=== PATIENT | male | born 1945 | race Caucasian/White ===

== ENCOUNTER → 2016-11-19 | Outpatient (CLI) | payer MEDICARE, OTHER | LOC: MW.CHORTHO 08:00 | PROVIDERS: ATTEND Orthopaedic Surgery | DX: M19.011 Primary osteoarthritis, right shoulder (principal) | CPT/HCPCS: 20610; G0463; J1040 ==

== ENCOUNTER 2019-04-28 09:42 | Emergency (ER) | payer MEDICARE, OTHER ==
--- NOTE | 2019-04-28 09:59 | EDM.PDOC ---
ED HPI GENERAL MEDICAL PROBLEM - General Chief Complaint: Lower Extremity Injury/Pain Stated Complaint: KICKED IN RIGHT FOOT BY HORSE Time Seen by Provider: 04/28/19 09:59 Source of Information: Reports: Patient History Limitations: Reports: No Limitations - History of Present Illness INITIAL COMMENTS - FREE TEXT/NARRATIVE: HISTORY AND PHYSICAL: History of present illness: Patient is a 73-year-old male presents the ED with complaint of right foot injury. He states that 2 days ago he was riding a horse when another horse kicked him on the bottom of the right foot. He has been able to walk on it but reports a lot of discomfort with this. He denies proximal ankle or knee pain and denies numbness or tingling. Review of systems: As per history of present illness and below otherwise all systems reviewed and negative. Past medical history: As per history of present illness and as reviewed below otherwise noncontributory. Surgical history: As per history of present illness and as reviewed below otherwise noncontributory. Social history: No reported history of drug or alcohol abuse. Family history: As per history of present illness and as reviewed below otherwise noncontributory. Physical exam: General: Patient sitting comfortably in no acute distress and nontoxic appearing HEENT: Atraumatic, normocephalic, pupils reactive, negative for conjunctival pallor or scleral icterus, mucous membranes moist, throat clear, neck supple, nontender, trachea midline. No meningeal signs. Lungs: Clear to auscultation, breath sounds equal bilaterally, chest nontender. Heart: S1S2, regular, negative for clicks, rubs, or overt murmur. Abdomen: Soft, nondistended, nontender. Negative for masses or hepatosplenomegaly. Negative for costovertebral tenderness. No rigidity, rebound , guarding. Pelvis: Stable nontender. Genitourinary: Deferred. Rectal: Deferred. Extremities: Ecchymosis of the second and third digits of the right foot and along the distal aspects of the first, second and third metatarsals on the dorsal aspect of foot. Pain to palpation in this area. No proximal pain to palpation of the ankle. CMS intact distally negative for cords or calf pain. Neurovascular unremarkable. Neuro: Awake, alert, oriented. Cranial nerves II through XII unremarkable. Cerebellum unremarkable. Motor and sensory unremarkable throughout. Exam nonfocal. Notes: Diagnostics: X-ray right foot Therapeutics: Declined pain meds CAM boot - nurse applied Crutches Prescriptions: Impression: Dislocation 4th proximal phalanx Plan: 1. Ice, elevate, and motrin or tylenol as needed 2. Follow up with podiatry, please call the number provided to schedule an appointment 3. Return to ED as needed as discussed Definitive disposition and diagnosis as appropriate pending reevaluation and review of above. - Related Data Allergies Allergy/AdvReac Type Severity Reaction Status Date / Time No Known Allergies Allergy Verified 04/28/19 09:52 Home Meds: Home Meds Tamsulosin HCl 0.4 mg PO DAILY 04/28/19 [History] Past Medical History Other Oncologic History: rectal - Infectious Disease History Infectious Disease History: Reports: Chicken Pox, Measles, Mumps Social & Family History - Family History Family Medical History: Noncontributory - Tobacco Use Smoking Status *Q: Never Smoker - Recreational Drug Use Recreational Drug Use: No Review of Systems - Review of Systems Review Of Systems: ROS reveals no pertinent complaints other than HPI. ED EXAM, GENERAL - Physical Exam Exam: See Below (See dictation) ED TRAUMA EXTREMITY PROCEDURES - Joint Reduction Site: Other (right fourth phalanx ) Sedation: Other (none) Pre-Procedure NV Status: Normal Post-Procedure NV Status: Normal Technique: Traction/Counter Traction Number of Attempts: 2 Post-Reduction Imaging: Completely Reduced, No Fracture Seen Joint Reduction Complications: No Course - Vital Signs Last Recorded V/S: Last Vital Signs Temp 97.3 F 04/28/19 09:53 Pulse 79 04/28/19 09:53 Resp 18 04/28/19 09:53 BP 126/55 L 04/28/19 09:53 Pulse Ox 97 04/28/19 09:53 - Orders/Labs/Meds Orders: Active Orders 24 hr Category Date Time Status Foot 2V Rt [CR] Stat Exams 04/28/19 11:12 Taken Departure - Departure Time of Disposition: 11:44 Disposition: Home, Self-Care 01 Condition: Good Clinical Impression: Dislocation of fourth toe, right, closed, Right foot injury - Discharge Information Instructions: Toe Dislocation, [id number] Referrals: Andrey Licea MD [Primary Care Provider] - Forms: ED Department Discharge Additional Instructions: The following information is given to patients seen in the emergency department who are being discharged to home. This information is to outline your options for follow-up care. We provide all patients seen in our emergency department with a follow-up referral. The need for follow-up, as well as the timing and circumstances, are variable depending upon the specifics of your emergency department visit. If you don't have a primary care physician on staff, we will provide you with a referral. We always advise you to contact your personal physician following an emergency department visit to inform them of the circumstance of the visit and for follow-up with them and/or the need for any referrals to a consulting specialist. The emergency department will also refer you to a specialist when appropriate. This referral assures that you have the opportunity for follow-up care with a specialist. All of these measure are taken in an effort to provide you with optimal care, which includes your follow-up. Under all circumstances we always encourage you to contact your private physician who remains a resource for coordinating your care. When calling for follow-up care, please make the office aware that this follow-up is from your recent emergency room visit. If for any reason you are refused follow-up, please contact the [facility] Emergency Department at and asked to speak to the emergency department charge nurse. [facility] [address] [place], [place] [id number] [facility] [address] [place] [id number] [facility] [address] [place] [address] 1. Ice, elevate, and motrin or tylenol as needed 2. Follow up with podiatry, please call the number provided to schedule an appointment 3. Return to ED as needed as discussed - My Orders Last 24 Hours: My Active Orders 04/28/19 11:12 Foot 2V Rt [CR] Stat - Assessment/Plan Last 24 Hours: My Active Orders 04/28/19 11:12 Foot 2V Rt [CR] Stat
--- NOTE | 2019-04-28 11:04 | CR ---
Indication: Kicked by horse. Technique: Right foot 3 views Comparison: None Findings: There appears to be dislocation of the 4th proximal phalanx relative to the metatarsal seen on AP and oblique views but not well seen on the lateral view due to foot positioning. No fracture identified. Screw fixation of the medial malleolus. Round lucent lesion in the navicular bone medially has a benign appearance and may represent a prior screw tract. Soft tissue swelling about the foot. Impression: Dislocation of the 4th proximal phalanx relative to the metatarsal. Dictated by Patricia Mello MD @ Apr 28 2019 11:00AM Signed by Dr. Patricia Mello @ Apr 28 2019 11:04AM
--- NOTE | 2019-04-28 12:45 | CR ---
Right foot: Two views of the right foot were obtained. Comparison: No previous study is available. Orthopedic screw is noted within the medial malleolus. No fracture or dislocation is seen. Mild soft tissue swelling appears to be present distally. Impression: Mild soft tissue swelling. No acute bony abnormality is identified on two-view right foot exam. Diagnostic code #2 MTDD
== END 2019-04-28 11:43 | disposition home or self-care (01) ==
LOC: MW.ED 09:42
DX: S93.124A Dislocation of metatarsophalangeal joint of right lesser toe(s), initial encounter (principal); V80.7 Animal-rider or occupant of animal-drawn vehicle injured in collision with other nonmotor vehicles; Y93.52 Activity, horseback riding
CPT/HCPCS: 73620-26-RT; 73620-RT; 73630-26-RT; 73630-RT; 99283-25

== ENCOUNTER 2020-04-09 12:07 | Observation (INO) | payer MEDICARE, OTHER ==
[2020-04-09] MEDS ORDERED: Diphtheria,Pertussis(Acell),Tetanus Vaccine 0.5 ML Syringe IM ONE (12:40)
[2020-04-09] MEDS ORDERED: IMIPENEM IV SCH (12:45)
[2020-04-09] MEDS ORDERED: CILASTATIN IV SCH (12:45)
[2020-04-09] MEDS ORDERED: Clindamycin Phosphate in D5W 900 MG in Premix Bag 1 BAG IV ONE ×2 (13:00)
[2020-04-09 13:18] LABS: BLOOD UREA NITROGEN,BUN 18 mg/dL (7.0-18.0); CARBON DIOXIDE,CO2 28.1 mmol/L (21.0-32.0); CHLORIDE,CL 104 mmol/L (98-107); GLUCOSE RANDOM 108 mg/dL (74-106); POTASSIUM,K 3.9 mmol/L (3.5-5.1); SODIUM,NA 140 mmol/L (136-148)
[2020-04-09] MEDS ORDERED: Meropenem Premix 1 GM in Premix Bag 1 BAG IV ONE (13:30)
--- NOTE | 2020-04-09 13:30 | CR ---
Right forearm: 2 views of the right forearm were obtained. Soft tissue swelling is noted. No radiopaque foreign object is seen. Calcification is noted off the lateral epicondyle within the elbow believed to be old. Minimal calcifications within the distal triceps tendon at the attachment to the olecranon process is seen. Mild degenerative change is noted at the radiocarpal joint. Vascular calcification is seen around the wrist. Impression: 1. Soft tissue swelling. 2. Other nonacute bony findings as noted above. 3. No radiopaque foreign object is seen. Diagnostic code #2 Study was dictated in MDT
--- NOTE | 2020-04-09 13:30 | EDM.PDOC ---
ED HPI GENERAL MEDICAL PROBLEM - General Chief Complaint: Bite:Animal, Insect Stated Complaint: INFECTED DOG BITE Time Seen by Provider: 04/09/20 12:19 - History of Present Illness INITIAL COMMENTS - FREE TEXT/NARRATIVE: HISTORY AND PHYSICAL: History of present illness: This 74-year-old male presents to the emergency department after being bit by his own dog in the right forearm. This was on Friday. He thinks. Patient s tates that he was taking some amoxicillin that was left over medication he had in his cabinet. There is been significant swelling but now the erythema swelling and purulent drainage are not getting better. He states that is slightly better than it was before but it continues to be quite painful. Worse with movement of the wrist. No pain with rotation at the elbow or extension flexion. His dog has all of his shots. Review of systems: A 10-point review of systems, other than pertinent positives and negatives as stated per HPI, is otherwise negative. Past medical history: As per history of present illness and as reviewed below otherwise noncontributory. Surgical history: As per history of present illness and as reviewed below otherwise noncontributory. Social history: No reported history of drug or alcohol abuse. Family history: As per history of present illness and as reviewed below otherwise noncontributory. Physical exam: VITAL SIGNS: Reviewed. GENERAL: Mild distress. Swollen right upper extremity. There are 2 puncture wounds on the ventral side of the forearm with 1 distinct area of necrosis and other distinct area of purulent drainage. On the dorsal side there is 1 puncture wound that is also infected. Both areas have a significant amount of cellulitis. Distal neurovascular function is intact. HEAD: No signs of head trauma. EYES: Pupils are equal. Extraocular motions intact. EARS: Hearing grossly intact. MOUTH: Oropharynx is normal. NECK: No adenopathy, no JVD. CHEST: Chest with clear breath sounds bilaterally. No wheezes, rales, or rhonchi. CARDIAC: Regular rate and rhythm. Normal S1 and S2, without murmurs, gallops, or rubs. VASCULAR: Peripheral pulses normal and equal in all extremities. ABDOMEN: Soft, without detectable tenderness. No sign of distention. No rebound or guarding, and no masses palpated. MUSCULOSKELETAL: Tenderness without pain and range of motion. Distal neurovascular function intact. Puncture wounds as described above. 1 area of distinct necrosis. I do not feel any crepitation. NEUROLOGIC EXAM: Alert and oriented x 3. No focal sensory or motor deficits. Speech normal. Follows commands. PSYCHIATRIC: Mood normal. SKIN: No rash or lesions. Initial Differential Diagnosis & Plan: The patient has an erythematous right forearm with lymphangitis up to the elbow. The rash is not pruritic. Differential diagnosis: -Necrotizing fascitis was considered. There does not appear to be distal proportionate pain. There is not a dusky appearance but there is an area of central necrosis on 1 of the lesions. There is some significant induration but no fluctuance. There are no bullae. Some mild ecchymosis around 1 other site. There is some pain beyond the puncture wounds but this area has cellulitic change. There are no skip lesions up the arm. The lymphangitis stops at the elbow. There is no tenderness in the lymph nodes of the right axilla. -DVT was considered, but there are no risk factors like personal history, family history, recent trauma or surgery, immobilization, or cancer. The patient has so has a clear history of why he would have this injury so DVT is essentially ruled out -abscess was considered, and the wound appears to be draining. There may be a small abscess under 1 of the areas. We will obtain additional imaging. There is no history of asplenia or liver cirrhosis. The wound is greater than 12 hours old. I am concerned about Pasteurella infection. There is no other immunocompromise state. No previous history of lymph node resection to increase the risk of lymphedema. I will start empiric therapy with IV antibiotics. I will discuss the case with the on-call surgeon about coming to the operating room and doing a washout and debriding the tissue there. Initial page to the surgeon was at 12:50 PM Definitive disposition and diagnosis as appropriate pending reevaluation and review of above. right forearm Pain Score (Numeric/FACES): 2 - Related Data Allergies Allergy/AdvReac Type Severity Reaction Status Date / Time No Known Allergies Allergy Verified 04/09/20 12:20 Home Meds: Home Meds . [No Known Home Meds] 04/09/20 [History] Past Medical History Other Oncologic History: rectal - Infectious Disease History Infectious Disease History: Reports: Measles, Mumps - Past Surgical History HEENT Surgical History: Reports: Oral Surgery GI Surgical History: Reports: Colonoscopy Social & Family History - Family History Family Medical History: Noncontributory - Tobacco Use Smoking Status *Q: Former Smoker Used Tobacco, but Quit: Yes Month/Year Tobacco Last Used: 1989 - Caffeine Use Caffeine Use: Reports: Coffee - Recreational Drug Use Recreational Drug Use: No ED ROS GENERAL - Review of Systems Review Of Systems: See Below (noted) ED EXAM, ANIMAL BITE - Physical Exam Exam: See Below (noted) Course - Vital Signs Last Recorded V/S: Last Vital Signs Temp 97.5 F 04/09/20 13:58 Pulse 61 04/09/20 13:58 Resp 18 04/09/20 12:21 BP 152/76 H 04/09/20 13:58 Pulse Ox 98 04/09/20 13:58 - Orders/Labs/Meds Orders: Active Orders 24 hr Category Date Time Status Patient Status [ADT] Routine ADT 04/09/20 14:35 Active Antiembolic Devices [RC] PER UNIT ROUTINE Care 04/09/20 14:36 Active Vaccines to be Administered [RC] PER UNIT ROUTINE Care 04/09/20 12:40 Active Verify Patient Consent Obtain [RC] ASDIRECTED Care 04/09/20 14:35 Active CORONAVIRUS COVID-19 KEVIN [MOLEC] Stat Lab 04/09/20 14:25 Received CULTURE BLOOD [BC] Stat Lab 04/09/20 12:50 Received CULTURE BLOOD [BC] Stat Lab 04/09/20 13:14 Received PROCALCITONIN [REF] Stat Lab 04/09/20 12:50 Received Lactated Ringers [Ringers, Lactated] 1,000 ml Med 04/09/20 14:45 Active IV ASDIRECTED Sodium Chloride 0.9% [Normal Saline] Med 04/09/20 14:35 Active 10 ml IV ASDIRECTED PRN Sodium Chloride 0.9% [Saline Flush] Med 04/09/20 14:35 Active 10 ml FLUSH ASDIRECTED PRN Sodium Chloride 0.9% [Saline Flush] Med 04/09/20 14:35 Active 2.5 ml FLUSH ASDIRECTED PRN Blood Culture x2 Reflex Set [OM.PC] Stat Oth 04/09/20 12:27 Ordered Peripheral IV Insertion Adult [OM.PC] Routine Oth 04/09/20 14:35 Ordered Sequential Compression Device [OM.PC] Routine Oth 04/09/20 14:35 Ordered Resuscitation Status Routine Resus Stat 04/09/20 14:35 Ordered Medication Orders Lactated Ringer's (Ringers, Lactated) 1,000 mls @ 125 mls/hr IV ASDIRECTED ANUM Sodium Chloride (Saline Flush) 10 ml FLUSH ASDIRECTED PRN PRN Reason: Keep Vein Open Sodium Chloride (Saline Flush) 2.5 ml FLUSH ASDIRECTED PRN PRN Reason: Keep Vein Open Sodium Chloride (Normal Saline) 10 ml IV ASDIRECTED PRN PRN Reason: IV Use Labs: Laboratory Tests 04/09/20 04/09/20 04/09/20 Range/Units 12:50 12:50 12:50 WBC 7.40 (4.0-11.0) K/uL RBC 4.61 (4.50-5.90) M/uL Hgb 14.6 (13.0-17.0) g/dL Hct 44.0 (38.0-50.0) % MCV 95.4 (80.0-98.0) fL MCH 31.7 (27.0-32.0) pg MCHC 33.2 (31.0-37.0) g/dL RDW Std Deviation 43.7 (28.0-62.0) fl RDW Coeff of Yohannes 13 (11.0-15.0) % Plt Count 256 (150-400) K/uL MPV 10.40 (7.40-12.00) fL Neut % (Auto) 72.9 (48.0-80.0) % Lymph % (Auto) 9.5 L (16.0-40.0) % [place] % (Auto) 16.1 H (0.0-15.0) % Eos % (Auto) 1.2 (0.0-7.0) % Baso % (Auto) 0.3 (0.0-1.5) % Neut # (Auto) 5.4 (1.4-5.7) K/uL Lymph # (Auto) 0.7 (0.6-2.4) K/uL [place] # (Auto) 1.2 H (0.0-0.8) K/uL Eos # (Auto) 0.1 (0.0-0.7) K/uL Baso # (Auto) 0.0 (0.0-0.1) K/uL Nucleated RBC % 0.0 /100WBC Nucleated RBCs # 0 K/uL INR Lactate 0.8 (0.20-2.00) mmol/L Sodium 140 (136-148) mmol/L Potassium 3.9 (3.5-5.1) mmol/L Chloride 104 (98-107) mmol/L Carbon Dioxide 28.1 (21.0-32.0) mmol/L BUN 18 (7.0-18.0) mg/dL Creatinine 0.9 (0.8-1.3) mg/dL Est Cr Clr Drug Dosing 68.34 mL/min Estimated GFR (MDRD) > 60.0 ml/min Glucose 108 H (74-106) mg/dL Calcium 8.8 (8.5-10.1) mg/dL C-Reactive Protein (0.00-0.90) mg/dL 04/09/20 04/09/20 Range/Units 12:50 12:50 WBC (4.0-11.0) K/uL RBC (4.50-5.90) M/uL Hgb (13.0-17.0) g/dL Hct (38.0-50.0) % MCV (80.0-98.0) fL MCH (27.0-32.0) pg MCHC (31.0-37.0) g/dL RDW Std Deviation (28.0-62.0) fl RDW Coeff of Yohannes (11.0-15.0) % Plt Count (150-400) K/uL MPV (7.40-12.00) fL Neut % (Auto) (48.0-80.0) % Lymph % (Auto) (16.0-40.0) % [place] % (Auto) (0.0-15.0) % Eos % (Auto) (0.0-7.0) % Baso % (Auto) (0.0-1.5) % Neut # (Auto) (1.4-5.7) K/uL Lymph # (Auto) (0.6-2.4) K/uL [place] # (Auto) (0.0-0.8) K/uL Eos # (Auto) (0.0-0.7) K/uL Baso # (Auto) (0.0-0.1) K/uL Nucleated RBC % /100WBC Nucleated RBCs # K/uL INR 1.03 Lactate (0.20-2.00) mmol/L Sodium (136-148) mmol/L Potassium (3.5-5.1) mmol/L Chloride (98-107) mmol/L Carbon Dioxide (21.0-32.0) mmol/L BUN (7.0-18.0) mg/dL Creatinine (0.8-1.3) mg/dL Est Cr Clr Drug Dosing mL/min Estimated GFR (MDRD) ml/min Glucose (74-106) mg/dL Calcium (8.5-10.1) mg/dL C-Reactive Protein 8.20 H (0.00-0.90) mg/dL Meds: Medications Generic Name Dose Route Start Last Admin Trade Name Freq PRN Reason Stop Dose Admin Lactated Ringer's 1,000 mls @ 125 mls/hr 04/09/20 14:45 Ringers, Lactated IV ASDIRECTED ANUM Sodium Chloride 10 ml 04/09/20 14:35 Saline Flush FLUSH ASDIRECTED PRN Keep Vein Open Sodium Chloride 2.5 ml 04/09/20 14:35 Saline Flush FLUSH ASDIRECTED PRN Keep Vein Open Sodium Chloride 10 ml 04/09/20 14:35 Normal Saline IV ASDIRECTED PRN IV Use Discontinued Medications Generic Name Dose Route Start Last Admin Trade Name Freq PRN Reason Stop Dose Admin Diphtheria/Tetanus/Acell Pertussis 0.5 ml 04/09/20 12:40 04/09/20 13:19 Adacel IM 04/09/20 12:41 0.5 ml .ONCE ONE Administration Clindamycin Phosphate 900 mg/ 56 mls @ 100 mls/hr 04/09/20 12:33 04/09/20 13:20 Sodium Chloride IV 04/09/20 13:06 Not Given ONETIME ONE Clindamycin Phosphate 900 mg/ 50 mls @ 89.286 mls/hr 04/09/20 13:00 04/09/20 13:19 Premix IV 04/09/20 13:33 89.286 mls/hr ONETIME ONE Administration Meropenem/Sodium Chloride 1 gm 50 mls @ 100 mls/hr 04/09/20 13:30 04/09/20 14:19 / Premix IV 04/09/20 13:59 100 mls/hr ONETIME ONE Administration Iopamidol 100 ml 04/09/20 14:22 04/09/20 14:22 Isovue Multipack-370 (76%) IVPUSH 04/09/20 14:23 100 ml ONETIME ONE Administration - Re-Assessments/Exams Free Text/Narrative Re-Assessment/Exam: 04/09/20 15:09 Laboratory results show an elevated CRP. Otherwise normal-appearing labs. Radiology findings show no evidence of necrotizing fasciitis. Dr. Carito Johnson, surgery, has come to the bedside and evaluated the patient. She agrees that the patient would be well served by going to the operating room for anesthesia, washout, incision and drainage, and debridement as indicated in the operative theater. She understands patient has been given broad-spectrum antibiotics and states that she will send him home on appropriate antibiotics. At this point I am admitting to the operating room for the patient to receive appropriate care. Critical Care Note: The patient presented in critical status due to sepsis requiring IV antibiotics The patient required rapid exam, decision making, and frequent re-evaluations during their time in the Emergency Department. Total Critical Care time exclusive of all other billable procedure time provided by myself 38 minutes My diagnostic impression: 1. Cellulitis right forearm 2. Abscess right forearm 3. Necrotic tissue secondary to infection right forearm 4. Elevated CRP 5. Infection secondary to dog bite Admit to operative theater for incision and drainage/debridement Departure - Departure Time of Disposition: 15:09 Disposition: Refer to Observation Clinical Impression: Abscess, Cellulitis, Dog bite - Discharge Information *PRESCRIPTION DRUG MONITORING PROGRAM REVIEWED*: Not Applicable *COPY OF PRESCRIPTION DRUG MONITORING REPORT IN PATIENT OREN: Not Applicable Instructions: Animal Bite, Adult, [id number], Cellulitis, Adult, [id number] Referrals: Andrey Licea MD [Primary Care Provider] - Forms: ED Department Discharge Sepsis Event Note (ED) - Evaluation Sepsis Screening Result: No Definite Risk - Focused Exam Vital Signs: Vital Signs Temp Pulse Resp BP Pulse Ox 04/09/20 13:58 97.5 F 61 152/76 H 98 04/09/20 12:21 97.5 F 64 18 170/80 H 98 - My Orders Last 24 Hours: My Active Orders 04/09/20 12:27 Blood Culture x2 Reflex Set [OM.PC] Stat 04/09/20 12:40 Vaccines to be Administered [RC] PER UNIT ROUTINE 04/09/20 12:50 CULTURE BLOOD [BC] Stat PROCALCITONIN [REF] Stat 04/09/20 13:14 CULTURE BLOOD [BC] Stat - Assessment/Plan Last 24 Hours: My Active Orders 04/09/20 12:27 Blood Culture x2 Reflex Set [OM.PC] Stat 04/09/20 12:40 Vaccines to be Administered [RC] PER UNIT ROUTINE 04/09/20 12:50 CULTURE BLOOD [BC] Stat PROCALCITONIN [REF] Stat 04/09/20 13:14 CULTURE BLOOD [BC] Stat
[2020-04-09] MEDS ORDERED: Iopamidol 755 MG/ML 200 ML Multipack Bottle IVPUSH ONE (14:22)
--- NOTE | 2020-04-09 14:31 | PCM.HP.2 ---
H&P History of Present Illness - General Date of Service: 04/09/20 Admit Problem/Dx: Admission Diagnosis/Problem Admission Diagnosis/Problem Cellulitis and abscess Source of Information: Patient History Limitations: Reports: No Limitations - History of Present Illness Initial Comments - Free Text/Narative: Patient is a 74 year old male who presents with an infection of the right forearm after a dog bite. He was bitten earlier this week. His dog has all his shots. He developed swelling, erythema, warmth and tenderness of the right hand and forearm. He had some amoxicillin at home and took this BID. The swelling, redness and warmth improved, but the areas over the bite person started draining purulent material and became raised. He complains of pain with movement at the wrist. He denies fevers, chills, nausea, vomiting or malaise. His vitals were stable on arrival other than being hypertensive. His WBC was normal. Lactate was normal. Forearm XR was normal. right forearm Pain Score (Numeric/FACES): 2 - Related Data Allergies/Adverse Reactions: Allergies Allergy/AdvReac Type Severity Reaction Status Date / Time No Known Allergies Allergy Verified 04/09/20 12:20 Home Medications: Home Meds . [No Known Home Meds] 04/09/20 [History] Past Medical History Cardiovascular History: Reports: None Other Oncologic History: rectal - Infectious Disease History Infectious Disease History: Reports: Measles, Mumps - Past Surgical History HEENT Surgical History: Reports: Oral Surgery GI Surgical History: Reports: Colonoscopy Musculoskeletal Surgical History: Reports: Shoulder Replacement Social & Family History - Family History Family Medical History: Noncontributory - Tobacco Use Smoking Status *Q: Former Smoker Used Tobacco, but Quit: Yes Month/Year Tobacco Last Used: 1989 - Caffeine Use Caffeine Use: Reports: Coffee - Recreational Drug Use Recreational Drug Use: No H&P Review of Systems - Review of Systems: Review Of Systems: Comprehensive ROS is negative, except as noted in HPI. Exam - Exam Exam: See Below - Vital Signs Vital Signs: Last Vital Signs Temp 36.4 C 04/09/20 13:58 Pulse 61 04/09/20 13:58 Resp 18 04/09/20 12:21 BP 152/76 H 04/09/20 13:58 Pulse Ox 98 04/09/20 13:58 Weight: 83.007 kg - Exam General: Alert, Oriented HEENT: Conjunctiva Clear, Mucosa Moist & [place], Posterior Pharynx Clear Neck: Supple, Trachea Midline Lungs: Clear to Auscultation, Normal Respiratory Effort Cardiovascular: Regular Rate, Regular Rhythm GI/Abdominal Exam: Soft Extremities: Other (warmth and swelling of mid aspect of dorsal and ventral forearm. There are 2 wounds on the dorsal aspect that appear to be punctures. These are draining purulent material and the area around them is fluctuant. There is a similar puncture wound on the ventral forearm that is draining and has fluctuance. No loss of sensation or motor function distally. ) - Patient Data Lab Results Last 24 hrs: Laboratory Results - last 24 hr 04/09/20 04/09/20 04/09/20 Range/Units 12:50 12:50 12:50 WBC 7.40 (4.0-11.0) K/uL RBC 4.61 (4.50-5.90) M/uL Hgb 14.6 (13.0-17.0) g/dL Hct 44.0 (38.0-50.0) % MCV 95.4 (80.0-98.0) fL MCH 31.7 (27.0-32.0) pg MCHC 33.2 (31.0-37.0) g/dL RDW Std Deviation 43.7 (28.0-62.0) fl RDW Coeff of Yohannes 13 (11.0-15.0) % Plt Count 256 (150-400) K/uL MPV 10.40 (7.40-12.00) fL Neut % (Auto) 72.9 (48.0-80.0) % Lymph % (Auto) 9.5 L (16.0-40.0) % Cook % (Auto) 16.1 H (0.0-15.0) % Eos % (Auto) 1.2 (0.0-7.0) % Baso % (Auto) 0.3 (0.0-1.5) % Neut # (Auto) 5.4 (1.4-5.7) K/uL Lymph # (Auto) 0.7 (0.6-2.4) K/uL Cook # (Auto) 1.2 H (0.0-0.8) K/uL Eos # (Auto) 0.1 (0.0-0.7) K/uL Baso # (Auto) 0.0 (0.0-0.1) K/uL Nucleated RBC % 0.0 /100WBC Nucleated RBCs # 0 K/uL INR Lactate 0.8 (0.20-2.00) mmol/L Sodium 140 (136-148) mmol/L Potassium 3.9 (3.5-5.1) mmol/L Chloride 104 (98-107) mmol/L Carbon Dioxide 28.1 (21.0-32.0) mmol/L BUN 18 (7.0-18.0) mg/dL Creatinine 0.9 (0.8-1.3) mg/dL Est Cr Clr Drug Dosing 68.34 mL/min Estimated GFR (MDRD) > 60.0 ml/min Glucose 108 H (74-106) mg/dL Calcium 8.8 (8.5-10.1) mg/dL C-Reactive Protein (0.00-0.90) mg/dL 04/09/20 04/09/20 Range/Units 12:50 12:50 WBC (4.0-11.0) K/uL RBC (4.50-5.90) M/uL Hgb (13.0-17.0) g/dL Hct (38.0-50.0) % MCV (80.0-98.0) fL MCH (27.0-32.0) pg MCHC (31.0-37.0) g/dL RDW Std Deviation (28.0-62.0) fl RDW Coeff of Yohannes (11.0-15.0) % Plt Count (150-400) K/uL MPV (7.40-12.00) fL Neut % (Auto) (48.0-80.0) % Lymph % (Auto) (16.0-40.0) % Cook % (Auto) (0.0-15.0) % Eos % (Auto) (0.0-7.0) % Baso % (Auto) (0.0-1.5) % Neut # (Auto) (1.4-5.7) K/uL Lymph # (Auto) (0.6-2.4) K/uL Cook # (Auto) (0.0-0.8) K/uL Eos # (Auto) (0.0-0.7) K/uL Baso # (Auto) (0.0-0.1) K/uL Nucleated RBC % /100WBC Nucleated RBCs # K/uL INR 1.03 Lactate (0.20-2.00) mmol/L Sodium (136-148) mmol/L Potassium (3.5-5.1) mmol/L Chloride (98-107) mmol/L Carbon Dioxide (21.0-32.0) mmol/L BUN (7.0-18.0) mg/dL Creatinine (0.8-1.3) mg/dL Est Cr Clr Drug Dosing mL/min Estimated GFR (MDRD) ml/min Glucose (74-106) mg/dL Calcium (8.5-10.1) mg/dL C-Reactive Protein 8.20 H (0.00-0.90) mg/dL Result Diagrams: 04/09/20 12:50 04/09/20 12:50 Sepsis Event Note - Evaluation Sepsis Screening Result: No Definite Risk - Focused Exam Vital Signs: Vital Signs Temp Pulse Resp BP Pulse Ox 04/09/20 13:58 36.4 C 61 152/76 H 98 04/09/20 12:21 36.4 C 64 18 170/80 H 98 - Problem List (1) Cellulitis SNOMED Code(s): 732247971 ICD Code: L03.90 - CELLULITIS, UNSPECIFIED Status: Acute Current Visit: Yes (2) Dog bite SNOMED Code(s): 992486980, 343180440 ICD Code: W54.0XXA - BITTEN BY DOG, INITIAL ENCOUNTER Status: Acute Current Visit: Yes (3) Abscess SNOMED Code(s): 265822630 ICD Code: L02.91 - CUTANEOUS ABSCESS, UNSPECIFIED Status: Acute Current Visit: Yes Problem List Initiated/Reviewed/Updated: Yes Orders Last 24hrs: Active Orders 24 hr Category Date Time Status Patient Status [ADT] Routine ADT 04/09/20 14:18 Active Vaccines to be Administered [RC] PER UNIT ROUTINE Care 04/09/20 12:40 Active Forearm w Cont Rt [CT] Stat Exams 04/09/20 12:41 Ordered CORONAVIRUS COVID-19 PCR PHL Stat Lab 04/09/20 14:16 Ordered CULTURE BLOOD [BC] Stat Lab 04/09/20 12:50 Received CULTURE BLOOD [BC] Stat Lab 04/09/20 13:14 Received PROCALCITONIN [REF] Stat Lab 04/09/20 12:50 Received Blood Culture x2 Reflex Set [OM.PC] Stat Oth 04/09/20 12:27 Ordered Assessment/Plan Comment:: Patient was given IV meropenem and clindamycin in the ER. I explained the need for debridement of his wounds. Since they are multiple and large I feel this would be more comfortable and safer to perform under MAC in the OR. I consented him for incision and drainage right forearm wounds. I explained the need for dressing changes and antibiotics afterwards. We discussed the procedure, expected perioperative course and risks including bleeding, infection or damage to surrounding structures. He verbalized understanding and wishes to proceed.
[2020-04-09] MEDS ORDERED: Sodium Chloride 0.9% 10 ML Syringe FLUSH PRN (14:35)
[2020-04-09] MEDS ORDERED: Sodium Chloride 0.9% 2.5 ML Syringe FLUSH PRN (14:35)
[2020-04-09] MEDS ORDERED: Sodium Chloride 0.9% 10 ML SDV IV PRN (14:35)
--- NOTE | 2020-04-09 14:38 | CT ---
PT hand and forearm Technique: Multiple coronal images were obtained of the hand and forearm to above the elbow. Intravenous contrast was utilized. Findings: Soft tissue edema and inflammatory change is noted within the forearm slightly distal to the elbow. Findings have the appearance of cellulitis. No focal fluid collections of abscess are seen. No muscle abnormality is definitely appreciated at this time. No findings of osteomyelitis is seen. Degenerative change is noted within the CMC joint of the thumb. Impression: 1. Findings which are felt compatible with cellulitis within the forearm slightly distal to the elbow. 2. No focal fluid collections of abscess are seen. No findings of osteomyelitis. 3. Degenerative change within the CMC joint of the thumb. Note: If patient's symptoms do not resolve with conservative therapy, ultrasound of the symptomatic area could then be considered. Diagnostic code #3 This report was dictated in MDT
[2020-04-09] MEDS ORDERED: Lactated Ringers 1,000 ML IV SCH (14:45)
--- NOTE | 2020-04-09 17:48 | PCM.PREANE ---
Preanesthetic Assessment - Procedure Proposed Procedure: RUE I&D. Anesthesia risks/benefits/alternative methods of anesthesia discussed with patient. All questions answered and concerns addressed. GA with LMA. - Anesthesia/Transfusion/Family Hx Anesthesia History: Prior Anesthesia Without Reaction (Multiple previous surgeries with GA, denies anesthetic complications.) Family History of Anesthesia Reaction: No Transfusion History: Unknown Additional History: ASA II, denies sore throat or dental damage following GA, Mallampati II. - Review of Systems General: No Symptoms Pulmonary: No Symptoms Cardiovascular: No Symptoms Gastrointestinal: No Symptoms Neurological: No Symptoms Other: Reports: None - Physical Assessment NPO Status Date: 04/09/20 NPO Status Time: 06:00 Vital Signs: Last Vital Signs Temp 36.4 C 04/09/20 13:58 Pulse 66 04/09/20 17:00 Resp 18 04/09/20 17:00 BP 172/89 H 04/09/20 17:00 Pulse Ox 98 04/09/20 17:00 Height: 1.7 m Weight: 83.007 kg ASA Class: 2 Mental Status: Alert & Oriented x3 Dentition: Reports: Normal Dentition Thyro-Mental Finger Breadths: 4 Mouth Opening Finger Breadths: 3 ROM/Head Extension: Full Lungs: Clear to Auscultation, Normal Respiratory Effort Cardiovascular: Regular Rate, Regular Rhythm - Lab Values: Laboratory Last Values WBC 7.40 K/uL (4.0-11.0) 04/09/20 12:50 RBC 4.61 M/uL (4.50-5.90) 04/09/20 12:50 Hgb 14.6 g/dL (13.0-17.0) 04/09/20 12:50 Hct 44.0 % (38.0-50.0) 04/09/20 12:50 MCV 95.4 fL (80.0-98.0) 04/09/20 12:50 MCH 31.7 pg (27.0-32.0) 04/09/20 12:50 MCHC 33.2 g/dL (31.0-37.0) 04/09/20 12:50 RDW Std Deviation 43.7 fl (28.0-62.0) 04/09/20 12:50 RDW Coeff of Yohannes 13 % (11.0-15.0) 04/09/20 12:50 Plt Count 256 K/uL (150-400) 04/09/20 12:50 MPV 10.40 fL (7.40-12.00) 04/09/20 12:50 Neut % (Auto) 72.9 % (48.0-80.0) 04/09/20 12:50 Lymph % (Auto) 9.5 % (16.0-40.0) L 04/09/20 12:50 [place] % (Auto) 16.1 % (0.0-15.0) H 04/09/20 12:50 Eos % (Auto) 1.2 % (0.0-7.0) 04/09/20 12:50 Baso % (Auto) 0.3 % (0.0-1.5) 04/09/20 12:50 Neut # (Auto) 5.4 K/uL (1.4-5.7) 04/09/20 12:50 Lymph # (Auto) 0.7 K/uL (0.6-2.4) 04/09/20 12:50 Dougherty # (Auto) 1.2 K/uL (0.0-0.8) H 04/09/20 12:50 Eos # (Auto) 0.1 K/uL (0.0-0.7) 04/09/20 12:50 Baso # (Auto) 0.0 K/uL (0.0-0.1) 04/09/20 12:50 Nucleated RBC % 0.0 /100WBC 04/09/20 12:50 Nucleated RBCs # 0 K/uL 04/09/20 12:50 INR 1.03 04/09/20 12:50 Lactate 0.8 mmol/L (0.20-2.00) 04/09/20 12:50 Sodium 140 mmol/L (136-148) 04/09/20 12:50 Potassium 3.9 mmol/L (3.5-5.1) 04/09/20 12:50 Chloride 104 mmol/L (98-107) 04/09/20 12:50 Carbon Dioxide 28.1 mmol/L (21.0-32.0) 04/09/20 12:50 BUN 18 mg/dL (7.0-18.0) 04/09/20 12:50 Creatinine 0.9 mg/dL (0.8-1.3) 04/09/20 12:50 Est Cr Clr Drug Dosing 68.34 mL/min 04/09/20 12:50 Estimated GFR (MDRD) > 60.0 ml/min 04/09/20 12:50 Glucose 108 mg/dL (74-106) H 04/09/20 12:50 Calcium 8.8 mg/dL (8.5-10.1) 04/09/20 12:50 C-Reactive Protein 8.20 mg/dL (0.00-0.90) H 04/09/20 12:50 SARS Virus RNA (PCR) NEGATIVE (NEGATIVE) 04/09/20 14:25 - Allergies Allergies/Adverse Reactions: Allergies Allergy/AdvReac Type Severity Reaction Status Date / Time No Known Allergies Allergy Verified 04/09/20 12:20 - Acknowledgements Anesthesia Type Planned: General Anesthesia Pt an Appropriate Candidate for the Planned Anesthesia: Yes Alternatives and Risks of Anesthesia Discussed w Pt/Guardian: Yes Pt/Guardian Understands and Agrees with Anesthesia Plan: Yes PreAnesthesia Questionnaire Cardiovascular History: Reports: None Other Oncologic History: rectal - Infectious Disease History Infectious Disease History: Reports: Measles, Mumps - Past Surgical History HEENT Surgical History: Reports: Oral Surgery GI Surgical History: Reports: Colonoscopy - SUBSTANCE USE Smoking Status *Q: Former Smoker Tobacco Use Within Last Twelve Months: Cigarettes Recreational Drug Use History: No - HOME MEDS Home Medications: Home Meds . [No Known Home Meds] 04/09/20 [History] - CURRENT (IN HOUSE) MEDS Current Meds: Current Medications Lactated Ringer's (Ringers, Lactated) 1,000 mls @ 125 mls/hr IV ASDIRECTED [facility] Last Admin: 04/09/20 15:21 Dose: 125 mls/hr Documented by: Sodium Chloride (Saline Flush) 10 ml FLUSH ASDIRECTED PRN PRN Reason: Keep Vein Open Sodium Chloride (Saline Flush) 2.5 ml FLUSH ASDIRECTED PRN PRN Reason: Keep Vein Open Sodium Chloride (Normal Saline) 10 ml IV ASDIRECTED PRN PRN Reason: IV Use Discontinued Medications Diphtheria/Tetanus/Acell Pertussis (Adacel) 0.5 ml IM .ONCE ONE Stop: 04/09/20 12:41 Last Admin: 04/09/20 13:19 Dose: 0.5 ml Documented by: Clindamycin Phosphate 900 mg/ (Sodium Chloride) 56 mls @ 100 mls/hr IV ONETIME ONE Stop: 04/09/20 13:06 Last Admin: 04/09/20 13:20 Dose: Not Given Documented by: Clindamycin Phosphate 900 mg/ (Premix) 50 mls @ 89.286 mls/hr IV ONETIME ONE Stop: 04/09/20 13:33 Last Admin: 04/09/20 13:19 Dose: 89.286 mls/hr Documented by: Meropenem/Sodium Chloride 1 gm (/ Premix) 50 mls @ 100 mls/hr IV ONETIME ONE Stop: 04/09/20 13:59 Last Admin: 04/09/20 14:19 Dose: 100 mls/hr Documented by: Iopamidol (Isovue Multipack-370 (76%)) 100 ml IVPUSH ONETIME ONE Stop: 04/09/20 14:23 Last Admin: 04/09/20 14:22 Dose: 100 ml Documented by:
[2020-04-09] MEDS ORDERED: Bupivacaine 0.5% 30 ML SDV ONE (17:50)
[2020-04-09] MEDS ORDERED: Ondansetron 4 MG/2 ML SDV ONE (17:54)
[2020-04-09] MEDS ORDERED: HYDROmorphone 2 MG/ML Syringe ONE (17:54)
[2020-04-09] MEDS ORDERED: Propofol 200 MG/20 ML SDV ONE ×2 (17:54)
[2020-04-09] MEDS ORDERED: fentaNYL 100 MCG/2 ML SDV ONE (17:54)
[2020-04-09] MEDS ORDERED: Sodium Chloride 0.9% 20 ML ONE (18:02)
[2020-04-09] MEDS ORDERED: Lidocaine 2% 5 ML SDV ONE (18:02)
[2020-04-09] MEDS ORDERED: Ketorolac 15 MG/ML SDV IVPUSH ONE (19:01)
[2020-04-09] MEDS ORDERED: Acetaminophen 650 MG in Premix Bag 1 BAG IV ONE (19:01)
--- NOTE | 2020-04-09 19:01 | PCM.OPNOTE ---
- General Post-Op/Procedure Note Date of Surgery/Procedure: 04/09/20 Operative Procedure(s): Incision and drainage right forearm abscess x 3 Findings: 7 x 5 x 0.2 cm distal ventral forearm abscess, 2 cm triangular superficial wound just proximal to the ventral wound, 3 x 2 x 0.2 cm dorsal forearm abscess Pre Op Diagnosis: DOg bite, cellulitis, abscess Post-Op Diagnosis: same Anesthesia Technique: General LMA Primary Surgeon: Carito Johnson Fluid Replacement, Intraop: 400 EBL in mLs: 3 Drain/Tube Comments:: Beatris x 2 Condition: Good
[2020-04-09] MEDS ORDERED: Ketorolac 30 MG/ML SDV ONE (19:17)
--- NOTE | 2020-04-09 19:43 | PCM48HPAN ---
Post Anesthesia Note - EVALUATION WITHIN 48HRS OF ANESTHETIC Vital Signs in Normal Range: Yes Patient Participated in Evaluation: Yes Respiratory Function Stable: Yes Airway Patent: Yes Cardiovascular Function Stable: Yes Hydration Status Stable: Yes Pain Control Satisfactory: Yes (4/10 pain) Nausea and Vomiting Control Satisfactory: Yes Mental Status Recovered: Yes Vital Signs: Last Vital Signs Temp 36.9 C 04/09/20 18:56 Pulse 53 L 04/09/20 19:20 Resp 15 04/09/20 19:20 BP 170/72 H 04/09/20 19:20 Pulse Ox 97 04/09/20 19:20 - COMMENTS/OBSERVATIONS Free Text/Narrative:: Late entry, assessed at 1935
--- NOTE | 2020-04-09 19:43 | PCM.POSTAN ---
POST ANESTHESIA ASSESSMENT - MENTAL STATUS Mental Status: Alert, Oriented - VITAL SIGNS Vital Signs: Last Vital Signs Temp 36.9 C 04/09/20 18:56 Pulse 53 L 04/09/20 19:20 Resp 15 04/09/20 19:20 BP 170/72 H 04/09/20 19:20 Pulse Ox 97 04/09/20 19:20 - RESPIRATORY Respiratory Status: Respiratory Rate WNL, Airway Patent, O2 Saturation Stable - CARDIOVASCULAR CV Status: Pulse Rate WNL, Blood Pressure Stable - GASTROINTESTINAL GI Status: No Symptoms - PAIN Pain Score: 4 - POST OP HYDRATION Hydration Status: Adequate & Stable - OBSERVATIONS Free Text/Narrative:: Late entry, assessed at 1915
--- NOTE | 2020-04-09 19:56 | OR ---
SURGEON: JOSEPH KOEHLER MD DATE OF PROCEDURE: 04/09/2020 PREOPERATIVE DIAGNOSES: Dog bite, cellulitis, abscess. POSTOPERATIVE DIAGNOSIS: Dog bite, cellulitis, abscess. PROCEDURES PERFORMED: Incision and drainage of right forearm abscess x3. ANESTHESIA: General LMA, local. FLUIDS: 400 mL crystalloid. ESTIMATED BLOOD LOSS: 3 mL. FINDINGS: 7 x 5 x 0.2 cm distal ventral forearm abscess, 2 cm triangular superficial wound just proximal to this ventral wound, 3 x 2 x 0.2 cm dorsal forearm abscess. COMPLICATIONS: None. INDICATIONS: The patient is a 74-year-old male who sustained a dog bite earlier this week. He developed cellulitis and started some at-home antibiotics. The redness and swelling improved, but then he developed drainage from the wounds. He presented to the emergency room. Workup revealed three small puncture wounds on the right distal forearm with associated drainage and fluctuance as well as cellulitis. The decision was made to proceed to the operating room for an incision and drainage of these wounds. I explained the procedure, expected perioperative course, and risks including bleeding, infection, or damage to surrounding structures. The patient verbalized understanding and wishes to proceed. PROCEDURE IN DETAIL: The patient was brought into the OR and placed on the OR table in supine position. A time-out was completed verifying the patient's name, age, date of , allergies, and procedure to be performed. General LMA anesthesia was induced. After adequate sedation was achieved, the right forearm was prepped and draped in the usual standard fashion. I anesthetized the areas around the puncture sites with 0.5% Marcaine plain. There was a triangular-shaped wound on the forearm and more distal to this was a 1-cm puncture wound draining pus. I removed the overlying scab on the triangular-shaped wound. It measured 2 cm x 2 cm x 2 cm. This was superficial with no associated abscess and did not track anywhere. I then turned my attention to the distal ventral forearm wound. Using hemostat, I explored this wound. Cloudy, purulent material was expressed. The wound tracked medially, laterally, superiorly, distal and proximal. The wound grossly measured 7 x 5 x 0.2 cm in size. A counterincision was made along the length of the abscess and a 1/4-inch Beatris was looped through this area. It was secured to the skin with an interrupted 2-0 silk suture. Once I was assured that all loculations were broken down in this wound, I then irrigated the area with normal saline until it ran clear. The wound was then packed with 1/4-inch packing strip. I then turned my attention to the dorsal forearm. A 1 cm puncture wound was noted. This was explored with a hemostat. This wound also contained cloudy, purulent material and was tracking. It measured 3 x 2 x 0.2 cm in size. A counterincision was made along the longest aspect of this abscess pocket and a 1/4-inch Beatris drain was looped through the wound. It was secured to the skin using an interrupted 2-0 silk suture. The wound was then irrigated with normal saline until it ran clear. The triangular-shaped wound was covered in bacitracin. I then marked out the areas of cellulitis with a marking pen. The wound was then covered with a 6-inch Kerlix roll and secured using tape. The patient tolerated the procedure well. Distal pulses were intact at the end of the case. He was extubated and taken to PACU in stable condition. All counts were complete and correct at the end of the case. GIBRAN / RENEE /[id number]
== END 2020-04-09 20:45 | disposition home or self-care (01) ==
LOC: MW.ED 12:07 → MW.MS 14:18
PROVIDERS: ADMIT Surgery; ATTEND Surgery
DX: L02.413 Cutaneous abscess of right upper limb (principal); L03.113 Cellulitis of right upper limb; I96 Gangrene, not elsewhere classified; R79.82 Elevated C-reactive protein (CRP); Z20.828 Contact with and (suspected) exposure to other viral communicable diseases; Z23 Encounter for immunization; Z87.891 Personal history of nicotine dependence; W54.0XXA Bitten by dog, initial encounter
CPT/HCPCS: 10061; 36415; 73090; 73201; 80048; 83605; 84145; 85025; 85610; 86140; 87040; 87070; 90471; 90715; 96361; 96365; 96367; 99285; J0131; J1170; J1885; J2001; J2185; J2405; J2704; J3010; J3490; J7120; Q9967; U0002; 01810; 99291